=== PATIENT | male | born 1965 | race Caucasian/White ===

== ENCOUNTER 2020-03-20 11:06 | Outpatient (CLI) | payer OTHER ==
[2020-03-21 13:58] LABS: SARS-CoV-2 MS2 Positive; SARS-CoV-2 N Gene Negative; SARS-CoV-2 S Gene Negative; SARS-CoV-2 orf1ab Negative
== END 2020-03-20 11:07 | disposition home or self-care (01) ==
LOC: SCSLAB 11:06
PROVIDERS: ATTEND Orthopaedic Surgery
DX: Z01.812 Encounter for preprocedural laboratory examination (principal); Z11.59 Encounter for screening for other viral diseases; M71.121 Other infective bursitis, right elbow
CPT/HCPCS: 87635; U0003

== ENCOUNTER 2021-03-14 18:23 | Inpatient (IN) | payer OTHER ==
[~2021-03-14 18:23] MED LIST: Heparin 1,000 UNITS/ML VIAL ONE
[2021-03-14] MEDS ORDERED: Ondansetron PF 4 MG/2 ML Vial IVP PRN (21:26)
[2021-03-14] MEDS ORDERED: Acetaminophen 325 MG TAB PO PRN (21:26)
[2021-03-14] MEDS ORDERED: Dextrose 5% in Water 1,000 ML IV PRN (21:35)
[2021-03-14] MEDS ORDERED: Dextrose 50% Abboject 50 ML SYRINGE SLOW IVP PRN (21:35)
[2021-03-14] MEDS: HYDROcodone/Acetaminophen 5/325 mg Tablet PO PRN (22:18)
[2021-03-14] MEDS: CEFAZOLIN 2 GM in Premix Bag 1 BAG IVPB SCH (22:18)
[2021-03-14] MEDS: Senokot S 8.6-50 MG TAB PO SCH (22:19)
[2021-03-14] MEDS ORDERED: Lantus 1000 UNITS/10 ML VIAL SC SCH (22:30)
[2021-03-14] MEDS ORDERED: Temazepam 15 MG CAP PO PRN (22:50)
[2021-03-14] MEDS ORDERED: fentaNYL 50 mcg/hour Patch TD SCH (23:00)
[2021-03-14] MEDS: Sodium Chloride 0.9% 1,000 ML IV SCH (23:10)
[2021-03-14] MEDS ORDERED: MULTIVITAMINS IV SCH (23:30)
[2021-03-14] MEDS ORDERED: TRACE ELEMENT IV SCH (23:30)
[2021-03-14] MEDS ORDERED: FOLIC ACID IV SCH (23:30)
[2021-03-14] MEDS ORDERED: [UNRECOGNIZED DRUG - OTHER] IV SCH (23:30)
[2021-03-15] MEDS: Morphine 4 MG/ML VIAL SLOW IVP PRN ×2 (00:50→05:53)
[2021-03-15 01:36] VITALS: BMI 22.0
[2021-03-15] MEDS: HYDROcodone/Acetaminophen 5/325 mg Tablet PO PRN (02:17)
[2021-03-15] MEDS: CEFAZOLIN 2 GM in Premix Bag 1 BAG IVPB SCH ×3 (05:54→23:03)
[2021-03-15 06:38] LABS: #Eosinphils 0.1 thou/uL (0.0-0.7); #Lymphocytes 1.8 thou/uL (1.20-3.40); #Monocytes 0.8 thou/uL (0.11-0.59); #Neutrophils 5.4 thou/uL (1.40-6.50); %Basophils 0.1 % (0.0-1.0); %Eosinophils 1.7 % (0.0-10.0); %Lymphocytes 22.5 % (21.0-51.0); %Monocytes 10.3 % (0.0-10.0); %Neutrophils 65.4 % (42.0-75.0); Hemoglobin 7.3 g/dL (14.0-18.0); Mean Corpuscular HGB CONC 32.8 g/dL (32.0-36.0); Mean Corpuscular Hemoglobin 29.1 pg (27.0-31.0); Mean Corpuscular Volume 88.9 fL (78.0-98.0); Mean Platelet Volume 7.2 fL (7.4-10.4); Platelet Count 304 thou/uL (130-400); RBC Distribution Width 14.6 % (11.5-14.5); Red Blood Cell (RBC) Count 2.52 mill/uL (4.70-6.10); White Blood Cell (WBC) Count 8.2 thou/uL (4.8-10.8)
[2021-03-15 06:57] LABS: Anion Gap 11 mmol/L (10-20); BUN (Urea Nitrogen) 19 mg/dL (8.4-25.7); Calc. Creatinine Clearance 115 mL/min (70-130); Calcium 8.4 mg/dL (7.8-10.44); Carbon Dioxide 28 mmol/L (22-29); Chloride 99 mmol/L (98-107); Glucose 164 mg/dL (70-105); Potassium 3.8 mmol/L (3.5-5.1); Sodium 134 mmol/L (136-145)
[2021-03-15 08:38] LABS: PTT 59.6 sec (22.9-36.1); Prothrombin Time 13.5 sec (12.0-14.7)
[2021-03-15 08:45] LABS: ALT (SGPT) 8 U/L (8-55); AST (SGOT) 11 U/L (5-34); Albumin 2.5 g/dL (3.5-5.0); Alkaline Phosphatase 876 U/L (40-110); Anion Gap 13 mmol/L (10-20); BUN (Urea Nitrogen) 18 mg/dL (8.4-25.7); Bilirubin, Total 0.3 mg/dL (0.2-1.2); Calc. Creatinine Clearance 118 mL/min (70-130); Calcium 8.3 mg/dL (7.8-10.44); Carbon Dioxide 25 mmol/L (22-29); Chloride 100 mmol/L (98-107); Globulin 3.9 g/dL (2.4-3.5); Glucose 157 mg/dL (70-105); Potassium 3.9 mmol/L (3.5-5.1); Protein, Total 6.4 g/dL (6.0-8.3); Sodium 134 mmol/L (136-145)
[2021-03-15] MEDS ORDERED: AA 4.25 %/CALCIUM/LYTES/D5W 2,000 ML IV SCH (08:45)
[2021-03-15] MEDS: Furosemide 40 MG/4 ML VIAL SLOW IVP SCH (09:43)
[2021-03-15] MEDS: Senokot S 8.6-50 MG TAB PO SCH ×2 (09:43→20:39)
[2021-03-15] MEDS: Magnesium Oxide 400 MG TAB PO SCH (09:43)
[2021-03-15] MEDS ORDERED: Fentanyl 100 MCG/2 ML VIAL ONE ×4 (10:01→13:09)
[2021-03-15] MEDS ORDERED: Promethazine HCl 25 MG/ML VIAL SLOW IVP PRN ×2 (10:26→12:20)
[2021-03-15] MEDS ORDERED: Promethazine HCl 25 MG/ML VIAL IM PRN ×3 (10:26→12:56)
[2021-03-15] MEDS ORDERED: Ondansetron HCl/PF 4 MG/2 ML Vial IVP PRN ×2 (10:26→12:20)
[2021-03-15] MEDS ORDERED: Ondansetron PF 4 MG/2 ML Vial ONE (10:30)
[2021-03-15] MEDS ORDERED: ePHEDrine Sulfate 50 MG/10 ML VIAL ONE (10:30)
[2021-03-15] MEDS ORDERED: diphenhydrAMINE 50 MG/ML VIAL ONE (10:30)
[2021-03-15] MEDS ORDERED: PROPOFOL 200 MG/20 ML VIAL ONE (10:30)
[2021-03-15] MEDS ORDERED: PHENYLEPHRINE-NS 100 MCG/ML 10 ML SYRINGE ONE (10:30)
[2021-03-15] MEDS ORDERED: Lidocaine 1% PF 5 ML VIAL ONE (10:30)
[2021-03-15] MEDS ORDERED: Rocuronium Bromide 10 MG/ML (10ML VIAL) ONE (10:30)
[2021-03-15] MEDS ORDERED: SUGAMMADEX SODIUM 200 MG/2 ML VIAL ONE (11:17)
[2021-03-15] MEDS ORDERED: HYDROmorphone 0.5 MG/0.5 ML SYRINGE ONE ×3 (12:19→13:36)
[2021-03-15] MEDS ORDERED: HYDROmorphone 2 MG/ML VIAL SLOW IVP PRN (12:20)
[2021-03-15] MEDS ORDERED: Morphine Sulfate 2 MG/ML SYRINGE SLOW IVP PRN (12:20)
[2021-03-15] MEDS ORDERED: Meperidine HCl/PF 25 MG/ML VIAL SLOW IVP PRN ×2 (12:20)
[2021-03-15] MEDS ORDERED: PACU-Morphine 4MG/ML VIAL SLOW IVP PRN (12:20)
[2021-03-15] MEDS ORDERED: diphenhydrAMINE 50 MG/ML VIAL IM PRN (12:56)
[2021-03-15] MEDS ORDERED: Naloxone HCl 0.4 mg/ml Vial IV PRN (12:56)
[2021-03-15] MEDS ORDERED: Ondansetron PF 4 MG/2 ML Vial IVP PRN (12:56)
[2021-03-15] MEDS ORDERED: Communication Order-Pharmacy FS SCH (13:00)
[2021-03-15] MEDS ORDERED: Promethazine HCl 25 MG/ML VIAL ONE (13:36)
[2021-03-15] MEDS: Nicotine 14 MG PATCH TD SCH (15:16)
[2021-03-15] MEDS: D5W-AA 4.25% with LYTES 1,000 ML IV SCH (16:28)
[2021-03-15] MEDS: Mirtazapine 15 MG TAB PO SCH (20:38)
[2021-03-15] MEDS: HumaLOG 300 UNITS/3 ML VIAL SC PRN (20:38)
[2021-03-15] MEDS: Lantus 1000 UNITS/10 ML VIAL SC SCH (20:39)
[2021-03-15] MEDS ORDERED: Lantus 1000 UNITS/10 ML VIAL SC SCH (21:00)
[2021-03-15] MEDS: Zolpidem Tartrate 5 MG TAB PO PRN (23:03)
[2021-03-15] MEDS: diphenhydrAMINE 50 MG/ML VIAL IVP PRN (23:03)
[2021-03-15] MEDS: HYDROmorphone 10 mg/100 ml CADD IVPB PRN (23:37)
[2021-03-15] MEDS: Sodium Chloride 0.9% 1,000 ML IV SCH (23:40)
[2021-03-16] MEDS: diphenhydrAMINE 50 MG/ML VIAL IVP PRN ×6 (01:52→22:37)
[2021-03-16] MEDS ORDERED: Gabapentin 300 MG CAP PO SCH ×2 (02:00→09:00)
[2021-03-16] MEDS: HumaLOG 300 UNITS/3 ML VIAL SC PRN ×3 (05:12→17:52)
[2021-03-16] MEDS: CEFAZOLIN 2 GM in Premix Bag 1 BAG IVPB SCH ×3 (05:15→20:26)
[2021-03-16] MEDS: D5W-AA 4.25% with LYTES 1,000 ML IV SCH ×2 (05:20→20:45)
[2021-03-16 06:01] LABS: #Monocytes 1.3 thou/uL (0.11-0.59); #Neutrophils 9.4 thou/uL (1.40-6.50); %Basophils 0.2 % (0.0-1.0); %Eosinophils 0.3 % (0.0-10.0); %Lymphocytes 15.8 % (21.0-51.0); %Monocytes 10.4 % (0.0-10.0); %Neutrophils 73.4 % (42.0-75.0); Hemoglobin 6.8 g/dL (14.0-18.0); Mean Corpuscular HGB CONC 33.6 g/dL (32.0-36.0); Mean Corpuscular Hemoglobin 29.8 pg (27.0-31.0); Mean Corpuscular Volume 88.8 fL (78.0-98.0); Mean Platelet Volume 7.6 fL (7.4-10.4); Platelet Count 292 thou/uL (130-400); RBC Distribution Width 14.5 % (11.5-14.5); Red Blood Cell (RBC) Count 2.29 mill/uL (4.70-6.10); White Blood Cell (WBC) Count 12.8 thou/uL (4.8-10.8)
[2021-03-16 06:06] LABS: Anion Gap 11 mmol/L (10-20); BUN (Urea Nitrogen) 20 mg/dL (8.4-25.7); Calc. Creatinine Clearance 115 mL/min (70-130); Calcium 8.1 mg/dL (7.8-10.44); Carbon Dioxide 27 mmol/L (22-29); Chloride 99 mmol/L (98-107); Glucose 174 mg/dL (70-105); Potassium 3.9 mmol/L (3.5-5.1); Sodium 133 mmol/L (136-145)
[2021-03-16] MEDS: Magnesium Oxide 400 MG TAB PO SCH (10:16)
[2021-03-16] MEDS: Polyethylene Glycol 3350 17 GM Packet PO SCH (10:18)
[2021-03-16] MEDS: Senokot S 8.6-50 MG TAB PO SCH (10:25)
[2021-03-16] MEDS: Furosemide 40 MG/4 ML VIAL SLOW IVP SCH (10:25)
[2021-03-16] MEDS: Acetaminophen 500 MG TAB PO SCH ×2 (11:54→17:51)
[2021-03-16] MEDS: Nicotine 14 MG PATCH TD SCH (11:56)
[2021-03-16] MEDS: HYDROmorphone 10 mg/100 ml CADD IVPB PRN (12:25)
[2021-03-16] MEDS: Gabapentin 300 MG CAP PO SCH ×2 (15:30→20:24)
[2021-03-16] MEDS ORDERED: Phytonadione 5 MG TAB PO SCH (19:00)
[2021-03-16] MEDS: Lantus 1000 UNITS/10 ML VIAL SC SCH (20:25)
[2021-03-16] MEDS: Mirtazapine 15 MG TAB PO SCH (20:25)
[2021-03-16] MEDS: Zolpidem Tartrate 5 MG TAB PO PRN (22:59)
[2021-03-17] MEDS: Acetaminophen 500 MG TAB PO SCH ×5 (00:38→23:19)
[2021-03-17] MEDS: Senokot S 8.6-50 MG TAB PO SCH ×3 (00:39→21:22)
[2021-03-17] MEDS: HumaLOG 300 UNITS/3 ML VIAL SC PRN ×4 (00:44→21:34)
[2021-03-17] MEDS: diphenhydrAMINE 50 MG/ML VIAL IVP PRN ×4 (01:16→18:42)
[2021-03-17] MEDS: CEFAZOLIN 2 GM in Premix Bag 1 BAG IVPB SCH ×3 (05:10→23:19)
[2021-03-17 05:48] LABS: #Eosinphils 0.1 thou/uL (0.0-0.7); #Monocytes 1.2 thou/uL (0.11-0.59); #Neutrophils 8.5 thou/uL (1.40-6.50); %Lymphocytes 16.8 % (21.0-51.0); %Monocytes 9.8 % (0.0-10.0); %Neutrophils 72.5 % (42.0-75.0); Hemoglobin 7.1 g/dL (14.0-18.0); Mean Corpuscular HGB CONC 32.7 g/dL (32.0-36.0); Mean Corpuscular Hemoglobin 29.2 pg (27.0-31.0); Mean Corpuscular Volume 89.4 fL (78.0-98.0); Mean Platelet Volume 7.6 fL (7.4-10.4); Platelet Count 218 thou/uL (130-400); Red Blood Cell (RBC) Count 2.43 mill/uL (4.70-6.10); White Blood Cell (WBC) Count 11.8 thou/uL (4.8-10.8)
[2021-03-17 06:09] LABS: Anion Gap 10 mmol/L (10-20); BUN (Urea Nitrogen) 23 mg/dL (8.4-25.7); Calc. Creatinine Clearance 105 mL/min (70-130); Carbon Dioxide 26 mmol/L (22-29); Chloride 98 mmol/L (98-107); Glucose 243 mg/dL (70-105); Sodium 130 mmol/L (136-145)
[2021-03-17 06:40] LABS: INR-International Normal Ratio 1.2; Prothrombin Time 15.4 sec (12.0-14.7)
[2021-03-17] MEDS ORDERED: Fentanyl 100 MCG/2 ML VIAL ONE ×4 (09:27→12:26)
[2021-03-17] MEDS: Magnesium Oxide 400 MG TAB PO SCH (09:46)
[2021-03-17] MEDS: Gabapentin 300 MG CAP PO SCH ×3 (09:46→21:21)
[2021-03-17] MEDS: Furosemide 40 MG/4 ML VIAL SLOW IVP SCH (09:46)
[2021-03-17] MEDS: Polyethylene Glycol 3350 17 GM Packet PO SCH (09:46)
[2021-03-17] MEDS ORDERED: Glycopyrrolate 0.2 MG/ML 5 ML SYRINGE ONE (10:33)
[2021-03-17] MEDS ORDERED: Ondansetron PF 4 MG/2 ML Vial ONE (10:33)
[2021-03-17] MEDS ORDERED: Succinylcholine 200 MG/10 ml SYRINGE FS ONE (10:33)
[2021-03-17] MEDS ORDERED: Lidocaine 1% PF 5 ML VIAL ONE (10:33)
[2021-03-17] MEDS ORDERED: Dexamethasone 20 MG/5 ML VIAL ONE (10:33)
[2021-03-17] MEDS ORDERED: Rocuronium Bromide 10 MG/ML (10ML VIAL) ONE (10:33)
[2021-03-17] MEDS: Nicotine 14 MG PATCH TD SCH (14:02)
[2021-03-17] MEDS: D5W-AA 4.25% with LYTES 1,000 ML IV SCH (14:32)
[2021-03-17] MEDS: Lantus 1000 UNITS/10 ML VIAL SC SCH (21:21)
[2021-03-17] MEDS: Mirtazapine 15 MG TAB PO SCH (21:21)
[2021-03-17] MEDS: diphenhydrAMINE 25 MG CAP PO PRN ×2 (21:21→23:19)
[2021-03-17] MEDS: Zolpidem Tartrate 5 MG TAB PO PRN (23:19)
[2021-03-18] MEDS: diphenhydrAMINE 50 MG/ML VIAL IVP PRN ×4 (01:43→21:15)
[2021-03-18] MEDS: HYDROmorphone 10 mg/100 ml CADD IVPB PRN ×2 (02:51→15:56)
[2021-03-18] MEDS: Acetaminophen 500 MG TAB PO SCH ×4 (05:13→23:43)
[2021-03-18] MEDS: CEFAZOLIN 2 GM in Premix Bag 1 BAG IVPB SCH ×3 (05:14→21:15)
[2021-03-18] MEDS: HumaLOG 300 UNITS/3 ML VIAL SC PRN ×2 (05:14→11:42)
[2021-03-18 05:51] LABS: #Lymphocytes 2.2 thou/uL (1.20-3.40); #Monocytes 1.3 thou/uL (0.11-0.59); #Neutrophils 15.3 thou/uL (1.40-6.50); %Basophils 0.1 % (0.0-1.0); %Eosinophils 0.1 % (0.0-10.0); %Lymphocytes 11.5 % (21.0-51.0); %Monocytes 6.6 % (0.0-10.0); %Neutrophils 81.7 % (42.0-75.0); Hemoglobin 8.4 g/dL (14.0-18.0); Mean Corpuscular HGB CONC 32.3 g/dL (32.0-36.0); Mean Corpuscular Hemoglobin 29.2 pg (27.0-31.0); Mean Corpuscular Volume 90.5 fL (78.0-98.0); Mean Platelet Volume 7.6 fL (7.4-10.4); Platelet Count 272 thou/uL (130-400); RBC Distribution Width 13.9 % (11.5-14.5); Red Blood Cell (RBC) Count 2.88 mill/uL (4.70-6.10); White Blood Cell (WBC) Count 18.8 thou/uL (4.8-10.8)
[2021-03-18] MEDS: Polyethylene Glycol 3350 17 GM Packet PO SCH (09:07)
[2021-03-18] MEDS: Gabapentin 300 MG CAP PO SCH ×3 (09:07→21:09)
[2021-03-18] MEDS: Magnesium Oxide 400 MG TAB PO SCH (09:07)
[2021-03-18] MEDS: Furosemide 40 MG/4 ML VIAL SLOW IVP SCH (09:08)
[2021-03-18] MEDS: Senokot S 8.6-50 MG TAB PO SCH ×2 (09:19→21:09)
[2021-03-18] MEDS: Nicotine 14 MG PATCH TD SCH (11:42)
[2021-03-18] MEDS ORDERED: Dextrose 5% in Water 1,000 ML IV PRN (15:10)
[2021-03-18] MEDS ORDERED: Dextrose 50% Abboject 50 ML SYRINGE SLOW IVP PRN (15:10)
[2021-03-18] MEDS: Insulin Regular 300 UNITS/3 ML VIAL SC PRN ×2 (17:39→21:15)
[2021-03-18] MEDS: Mirtazapine 15 MG TAB PO SCH (21:08)
[2021-03-18] MEDS: Lantus 1000 UNITS/10 ML VIAL SC SCH (21:09)
[2021-03-18] MEDS: Temazepam 15 MG CAP PO PRN (23:43)
[2021-03-19] MEDS: diphenhydrAMINE 50 MG/ML VIAL IVP PRN ×6 (01:51→23:56)
[2021-03-19 05:11] LABS: #Basophils 0.1 thou/uL (0.0-0.2); #Eosinphils 0.3 thou/uL (0.0-0.7); #Lymphocytes 3.1 thou/uL (1.20-3.40); #Neutrophils 8.2 thou/uL (1.40-6.50); %Basophils 0.4 % (0.0-1.0); %Eosinophils 2.2 % (0.0-10.0); %Lymphocytes 24.7 % (21.0-51.0); %Monocytes 7.7 % (0.0-10.0); Hemoglobin 8.5 g/dL (14.0-18.0); Mean Corpuscular HGB CONC 32.4 g/dL (32.0-36.0); Mean Corpuscular Hemoglobin 29.6 pg (27.0-31.0); Mean Corpuscular Volume 91.3 fL (78.0-98.0); Mean Platelet Volume 7.4 fL (7.4-10.4); Platelet Count 261 thou/uL (130-400); Red Blood Cell (RBC) Count 2.87 mill/uL (4.70-6.10); White Blood Cell (WBC) Count 12.6 thou/uL (4.8-10.8)
[2021-03-19 05:31] LABS: Anion Gap 13 mmol/L (10-20); BUN (Urea Nitrogen) 20 mg/dL (8.4-25.7); Calc. Creatinine Clearance 111 mL/min (70-130); Calcium 8.7 mg/dL (7.8-10.44); Carbon Dioxide 26 mmol/L (22-29); Chloride 102 mmol/L (98-107); Glucose 111 mg/dL (70-105); Potassium 4.2 mmol/L (3.5-5.1); Sodium 137 mmol/L (136-145)
[2021-03-19] MEDS: CEFAZOLIN 2 GM in Premix Bag 1 BAG IVPB SCH ×3 (06:06→22:11)
[2021-03-19] MEDS: Acetaminophen 500 MG TAB PO SCH (06:06)
[2021-03-19] MEDS: Gabapentin 300 MG CAP PO SCH ×3 (08:12→20:43)
[2021-03-19] MEDS: Magnesium Oxide 400 MG TAB PO SCH (08:13)
[2021-03-19] MEDS: Polyethylene Glycol 3350 17 GM Packet PO SCH (08:13)
[2021-03-19] MEDS: Senokot S 8.6-50 MG TAB PO SCH ×2 (08:14→20:42)
[2021-03-19] MEDS: HYDROmorphone 10 mg/100 ml CADD IVPB PRN (09:07)
[2021-03-19] MEDS: Lantus 1000 UNITS/10 ML VIAL SC SCH ×2 (09:08→20:43)
[2021-03-19] MEDS ORDERED: traMADol HCl 50 MG TAB PO PRN (11:38)
[2021-03-19] MEDS: HYDROcodone/Acetaminophen 10/325 mg Tablet PO PRN ×3 (13:25→22:11)
[2021-03-19] MEDS: Nicotine 14 MG PATCH TD SCH (13:28)
[2021-03-19] MEDS: Morphine 4 MG/ML VIAL SLOW IVP PRN ×4 (14:40→23:54)
[2021-03-19] MEDS: Mirtazapine 15 MG TAB PO SCH (20:43)
[2021-03-19] MEDS: Temazepam 15 MG CAP PO PRN (22:11)
[2021-03-20] MEDS: HYDROcodone/Acetaminophen 10/325 mg Tablet PO PRN ×5 (02:14→22:31)
[2021-03-20] MEDS: Morphine 4 MG/ML VIAL SLOW IVP PRN ×9 (03:36→23:26)
[2021-03-20] MEDS: diphenhydrAMINE 50 MG/ML VIAL IVP PRN ×6 (03:37→22:32)
[2021-03-20] MEDS: CEFAZOLIN 2 GM in Premix Bag 1 BAG IVPB SCH ×3 (05:40→22:32)
[2021-03-20] MEDS: Gabapentin 300 MG CAP PO SCH ×3 (08:10→20:38)
[2021-03-20] MEDS: Senokot S 8.6-50 MG TAB PO SCH ×2 (08:10→21:43)
[2021-03-20] MEDS: Magnesium Oxide 400 MG TAB PO SCH (08:10)
[2021-03-20] MEDS: Polyethylene Glycol 3350 17 GM Packet PO SCH (08:10)
[2021-03-20] MEDS: Nicotine 14 MG PATCH TD SCH (08:12)
[2021-03-20] MEDS: Lantus 1000 UNITS/10 ML VIAL SC SCH ×2 (09:52→20:39)
[2021-03-20] MEDS ORDERED: Lantus 1000 UNITS/10 ML VIAL SC SCH (10:30)
[2021-03-20] MEDS: Insulin Regular 300 UNITS/3 ML VIAL SC PRN (18:17)
[2021-03-20] MEDS: Temazepam 15 MG CAP PO PRN (20:37)
[2021-03-20] MEDS: Mirtazapine 15 MG TAB PO SCH (20:38)
[2021-03-21] MEDS: Morphine 4 MG/ML VIAL SLOW IVP PRN ×9 (01:22→22:06)
[2021-03-21] MEDS: Temazepam 15 MG CAP PO PRN ×2 (01:44→21:17)
[2021-03-21] MEDS: diphenhydrAMINE 25 MG CAP PO PRN ×5 (02:33→17:13)
[2021-03-21] MEDS: HYDROcodone/Acetaminophen 10/325 mg Tablet PO PRN ×5 (02:33→21:17)
[2021-03-21] MEDS: CEFAZOLIN 2 GM in Premix Bag 1 BAG IVPB SCH ×3 (05:45→21:17)
[2021-03-21 06:02] LABS: #Basophils 0.1 thou/uL (0.0-0.2); #Eosinphils 0.3 thou/uL (0.0-0.7); #Lymphocytes 2.7 thou/uL (1.20-3.40); #Monocytes 0.8 thou/uL (0.11-0.59); #Neutrophils 6.7 thou/uL (1.40-6.50); %Basophils 0.5 % (0.0-1.0); %Eosinophils 3.1 % (0.0-10.0); %Lymphocytes 25.7 % (21.0-51.0); %Monocytes 7.3 % (0.0-10.0); %Neutrophils 63.4 % (42.0-75.0); Hemoglobin 8.9 g/dL (14.0-18.0); Mean Corpuscular Hemoglobin 29.3 pg (27.0-31.0); Mean Corpuscular Volume 91.5 fL (78.0-98.0); Mean Platelet Volume 6.9 fL (7.4-10.4); Platelet Count 345 thou/uL (130-400); RBC Distribution Width 14.1 % (11.5-14.5); Red Blood Cell (RBC) Count 3.05 mill/uL (4.70-6.10); White Blood Cell (WBC) Count 10.5 thou/uL (4.8-10.8)
[2021-03-21 06:26] LABS: Anion Gap 10 mmol/L (10-20); BUN (Urea Nitrogen) 20 mg/dL (8.4-25.7); Calc. Creatinine Clearance 113 mL/min (70-130); Calcium 8.8 mg/dL (7.8-10.44); Carbon Dioxide 32 mmol/L (22-29); Chloride 98 mmol/L (98-107); Glucose 79 mg/dL (70-105); Sodium 136 mmol/L (136-145)
[2021-03-21] MEDS: Gabapentin 300 MG CAP PO SCH ×3 (07:56→19:40)
[2021-03-21] MEDS: Magnesium Oxide 400 MG TAB PO SCH (07:56)
[2021-03-21] MEDS: Aspirin 81 mg Enteric Coated Tablet PO SCH (07:57)
[2021-03-21] MEDS: Lantus 1000 UNITS/10 ML VIAL SC SCH ×2 (08:04→19:41)
[2021-03-21] MEDS: Senokot S 8.6-50 MG TAB PO SCH ×2 (08:07→19:42)
[2021-03-21] MEDS: Polyethylene Glycol 3350 17 GM Packet PO SCH (08:07)
[2021-03-21] MEDS: Nicotine 14 MG PATCH TD SCH (08:58)
[2021-03-21] MEDS ORDERED: Clopidogrel Bisulfate 75 MG TAB PO SCH (09:00)
[2021-03-21] MEDS: Mirtazapine 15 MG TAB PO SCH (19:41)
[2021-03-21] MEDS: diphenhydrAMINE 50 MG/ML VIAL IVP PRN (21:23)
[2021-03-22] MEDS: Morphine 4 MG/ML VIAL SLOW IVP PRN ×4 (00:15→09:04)
[2021-03-22] MEDS: HYDROcodone/Acetaminophen 10/325 mg Tablet PO PRN ×5 (01:06→21:12)
[2021-03-22] MEDS: diphenhydrAMINE 50 MG/ML VIAL IVP PRN ×2 (01:06→06:31)
[2021-03-22] MEDS: CEFAZOLIN 2 GM in Premix Bag 1 BAG IVPB SCH ×3 (05:03→21:15)
[2021-03-22] MEDS: Gabapentin 300 MG CAP PO SCH ×3 (08:58→21:11)
[2021-03-22] MEDS: Magnesium Oxide 400 MG TAB PO SCH (08:59)
[2021-03-22] MEDS: Lantus 1000 UNITS/10 ML VIAL SC SCH ×2 (09:00→21:10)
[2021-03-22] MEDS: Aspirin 81 mg Enteric Coated Tablet PO SCH (09:00)
[2021-03-22] MEDS: Nicotine 14 MG PATCH TD SCH (09:00)
[2021-03-22] MEDS: Polyethylene Glycol 3350 17 GM Packet PO SCH (11:28)
[2021-03-22] MEDS: Senokot S 8.6-50 MG TAB PO SCH (11:29)
[2021-03-22] MEDS: diphenhydrAMINE 25 MG CAP PO PRN ×2 (12:13→21:13)
[2021-03-22] MEDS: Mirtazapine 15 MG TAB PO SCH (21:13)
[2021-03-22] MEDS: Temazepam 15 MG CAP PO PRN (21:29)
[2021-03-23] MEDS: HYDROcodone/Acetaminophen 10/325 mg Tablet PO PRN ×4 (00:16→13:02)
[2021-03-23] MEDS: diphenhydrAMINE 25 MG CAP PO PRN ×3 (00:17→08:43)
[2021-03-23] MEDS: Senokot S 8.6-50 MG TAB PO SCH ×2 (01:08→08:37)
[2021-03-23] MEDS: CEFAZOLIN 2 GM in Premix Bag 1 BAG IVPB SCH ×2 (05:11→13:05)
[2021-03-23] MEDS: Insulin Regular 300 UNITS/3 ML VIAL SC PRN (05:15)
[2021-03-23] MEDS: Magnesium Oxide 400 MG TAB PO SCH (08:36)
[2021-03-23] MEDS: Gabapentin 300 MG CAP PO SCH ×2 (08:36→14:38)
[2021-03-23] MEDS: Aspirin 81 mg Enteric Coated Tablet PO SCH (08:37)
[2021-03-23] MEDS: Polyethylene Glycol 3350 17 GM Packet PO SCH (08:37)
[2021-03-23] MEDS: Lantus 1000 UNITS/10 ML VIAL SC SCH (08:41)
[2021-03-23] MEDS ORDERED: Morphine 2 MG/ML VIAL SLOW IVP SCH (12:00)
[2021-03-23] MEDS: Nicotine 14 MG PATCH TD SCH (13:03)
[2021-03-23 17:12] VITALS: BP 137/75; TEMP 98.7
== END 2021-03-23 16:00 | DRG 854 ==
LOC: SJJU 18:23
PROVIDERS: ADMIT Internal Medicine; ATTEND Hospitalist
PROC: 0Y6D0Z1 Detachment at Left Upper Leg, High, Open Approach (ICD-10-PCS; principal; 2021-03-15)
PROC: 30233N1 Transfusion of Nonautologous Red Blood Cells into Peripheral Vein, Percutaneous Approach (ICD-10-PCS; 2021-03-15)
PROC: 0Y3J0ZZ Control Bleeding in Left Lower Leg, Open Approach (ICD-10-PCS; 2021-03-17)
PROC: 02HV33Z Insertion of Infusion Device into Superior Vena Cava, Percutaneous Approach (ICD-10-PCS; 2021-03-19)
PROC: B548ZZA Ultrasonography of Superior Vena Cava, Guidance (ICD-10-PCS; 2021-03-19)
DX: A41.01 Sepsis due to Methicillin susceptible Staphylococcus aureus (principal); M00.062 Staphylococcal arthritis, left knee; M00.011 Staphylococcal arthritis, right shoulder; D62 Acute posthemorrhagic anemia; E44.0 Moderate protein-calorie malnutrition; L76.22 Postprocedural hemorrhage of skin and subcutaneous tissue following other procedure; L03.116 Cellulitis of left lower limb; E87.1 Hypo-osmolality and hyponatremia; B95.61 Methicillin susceptible Staphylococcus aureus infection as the cause of diseases classified elsewhere; E11.51 Type 2 diabetes mellitus with diabetic peripheral angiopathy without gangrene; Y83.8 Other surgical procedures as the cause of abnormal reaction of the patient, or of later complication, without mention of misadventure at the time of the procedure; I10 Essential (primary) hypertension; E11.65 Type 2 diabetes mellitus with hyperglycemia; F17.210 Nicotine dependence, cigarettes, uncomplicated; E78.5 Hyperlipidemia, unspecified; F39 Unspecified mood [affective] disorder; Z88.0 Allergy status to penicillin; Z79.899 Other long term (current) drug therapy; Z79.02 Long term (current) use of antithrombotics/antiplatelets; Z79.82 Long term (current) use of aspirin; Z79.4 Long term (current) use of insulin
CPT/HCPCS: 36415; 36416; 36430; 36569; 80048; 83880; 85025; 85610; 85730; 86140; 86850; 86900; 86901; 87040; 87070; 87149; 87205; 88307; C1751; J0690; J1100; J1170; J1200; J1644; J1815; J1940; J2270; J2405; J2550; J2704; J3010; P9016; Q0163

== ENCOUNTER 2021-03-28 08:52 | Inpatient (IN) | payer OTHER ==
[2021-03-27 14:34] VITALS: BMI 22.7
[2021-03-28 10:23] LABS: Prothrombin Time 13.4 sec (12.0-14.7)
[2021-03-28] MEDS ORDERED: Fentanyl 100 MCG/2 ML VIAL ONE ×5 (10:41→14:16)
[2021-03-28] MEDS ORDERED: Clindamycin/D5W 600 mg/50 ml Premix Bag ONE (10:41)
[2021-03-28] MEDS ORDERED: Ondansetron PF 4 MG/2 ML Vial ONE (11:15)
[2021-03-28] MEDS ORDERED: PROPOFOL 200 MG/20 ML VIAL ONE (11:15)
[2021-03-28] MEDS ORDERED: PHENYLEPHRINE-NS 100 MCG/ML 10 ML SYRINGE ONE (11:15)
[2021-03-28] MEDS ORDERED: ePHEDrine Sulfate 50 MG/10 ML VIAL ONE (11:15)
[2021-03-28] MEDS ORDERED: Tranexamic Acid 1,000 MG/10 ML VIAL ONE ×2 (11:58→12:47)
[2021-03-28] MEDS ORDERED: Meperidine HCl/PF 25 MG/ML VIAL ONE (12:39)
[2021-03-28] MEDS ORDERED: Tranexamic Acid 1,000 MG in Sodium Chloride 0.9% 250 ML 250 ML IVPB SCH (12:45)
[2021-03-28] MEDS ORDERED: Insulin Regular 300 UNITS/3 ML VIAL ONE (12:48)
[2021-03-28] MEDS ORDERED: HYDROmorphone 2 MG/ML VIAL ONE (13:12)
[2021-03-28] MEDS ORDERED: HumaLOG 300 UNITS/3 ML VIAL SC PRN (14:57)
[2021-03-28] MEDS ORDERED: Dextrose 5% in Water 1,000 ML IV PRN (14:57)
[2021-03-28] MEDS ORDERED: Dextrose 50% Abboject 50 ML SYRINGE SLOW IVP PRN (14:57)
[2021-03-28] MEDS ORDERED: Acetaminophen 325 MG TAB PO PRN (14:58)
[2021-03-28] MEDS ORDERED: HYDROcodone/Acetaminophen 7.5/325 mg Tablet PO PRN (15:39)
[2021-03-28] MEDS: CEFAZOLIN 2 GM in Premix Bag 1 BAG IVPB SCH (15:55)
[2021-03-28 15:56] LABS: #Basophils 0.1 thou/uL (0.0-0.2); #Eosinphils 0.2 thou/uL (0.0-0.7); #Lymphocytes 2.7 thou/uL (1.20-3.40); #Monocytes 0.8 thou/uL (0.11-0.59); #Neutrophils 6.8 thou/uL (1.40-6.50); %Basophils 0.5 % (0.0-1.0); %Eosinophils 2.3 % (0.0-10.0); %Lymphocytes 25.4 % (21.0-51.0); %Monocytes 7.8 % (0.0-10.0); Hemoglobin 9.5 g/dL (14.0-18.0); Mean Corpuscular HGB CONC 33.7 g/dL (32.0-36.0); Mean Corpuscular Hemoglobin 30.3 pg (27.0-31.0); Mean Corpuscular Volume 89.8 fL (78.0-98.0); Mean Platelet Volume 6.4 fL (7.4-10.4); Platelet Count 436 thou/uL (130-400); RBC Distribution Width 14.1 % (11.5-14.5); Red Blood Cell (RBC) Count 3.13 mill/uL (4.70-6.10); White Blood Cell (WBC) Count 10.6 thou/uL (4.8-10.8)
[2021-03-28 16:24] LABS: Hemoglobin A1c 5.6 % (4.0-6.0)
[2021-03-28] MEDS ORDERED: Ketorolac Tromethamine 30 MG/ML VIAL IVP PRN (18:34)
[2021-03-28] MEDS: Mirtazapine 15 MG TAB PO SCH (20:03)
[2021-03-28] MEDS: Famotidine 20 MG TAB PO SCH (20:03)
[2021-03-28] MEDS: Morphine 2 MG/ML VIAL SLOW IVP PRN (20:04)
[2021-03-28] MEDS: Senokot S 8.6-50 MG TAB PO SCH (20:04)
[2021-03-28] MEDS: Lantus 1000 UNITS/10 ML VIAL SC SCH (21:31)
[2021-03-28] MEDS: HumaLOG 300 UNITS/3 ML VIAL SC PRN (21:32)
[2021-03-29] MEDS: CEFAZOLIN 2 GM in Premix Bag 1 BAG IVPB SCH (00:10)
[2021-03-29] MEDS: Morphine 2 MG/ML VIAL SLOW IVP PRN ×6 (00:10→20:26)
[2021-03-29] MEDS: Temazepam 15 MG CAP PO PRN ×2 (00:32→22:30)
[2021-03-29 04:51] LABS: #Eosinphils 0.2 thou/uL (0.0-0.7); #Lymphocytes 1.8 thou/uL (1.20-3.40); #Monocytes 0.6 thou/uL (0.11-0.59); #Neutrophils 4.8 thou/uL (1.40-6.50); %Basophils 0.6 % (0.0-1.0); %Eosinophils 3.1 % (0.0-10.0); %Lymphocytes 23.6 % (21.0-51.0); %Monocytes 8.4 % (0.0-10.0); %Neutrophils 64.3 % (42.0-75.0); Hemoglobin 7.9 g/dL (14.0-18.0); Mean Corpuscular HGB CONC 31.4 g/dL (32.0-36.0); Mean Corpuscular Hemoglobin 28.9 pg (27.0-31.0); Mean Platelet Volume 6.9 fL (7.4-10.4); Platelet Count 322 thou/uL (130-400); Red Blood Cell (RBC) Count 2.72 mill/uL (4.70-6.10); White Blood Cell (WBC) Count 7.5 thou/uL (4.8-10.8)
[2021-03-29] MEDS ORDERED: Lantus 1000 UNITS/10 ML VIAL SC SCH (09:00)
[2021-03-29] MEDS: Famotidine 20 MG TAB PO SCH ×2 (09:03→20:27)
[2021-03-29] MEDS: Nicotine 14 MG PATCH TD SCH (09:04)
[2021-03-29] MEDS: Senokot S 8.6-50 MG TAB PO SCH ×2 (09:16→20:29)
[2021-03-29] MEDS: HYDROcodone/Acetaminophen 10/325 mg Tablet PO PRN ×4 (10:52→22:30)
[2021-03-29] MEDS ORDERED: Gabapentin 300 MG CAP PO SCH (13:00)
[2021-03-29] MEDS: HumaLOG 300 UNITS/3 ML VIAL SC PRN (17:49)
[2021-03-29] MEDS: Mirtazapine 15 MG TAB PO SCH (20:27)
[2021-03-29] MEDS: Lantus 1000 UNITS/10 ML VIAL SC SCH (20:33)
[2021-03-30] MEDS: Morphine 2 MG/ML VIAL SLOW IVP PRN ×4 (00:17→20:23)
[2021-03-30] MEDS: HumaLOG 300 UNITS/3 ML VIAL SC PRN ×2 (06:20→20:29)
[2021-03-30] MEDS: Lantus 1000 UNITS/10 ML VIAL SC SCH ×2 (08:03→20:30)
[2021-03-30] MEDS: Famotidine 20 MG TAB PO SCH ×2 (08:05→20:24)
[2021-03-30 08:25] LABS: Hemoglobin 9.7 g/dL (14.0-18.0)
[2021-03-30] MEDS: Senokot S 8.6-50 MG TAB PO SCH ×2 (11:12→21:26)
[2021-03-30] MEDS: Nicotine 14 MG PATCH TD SCH (11:12)
[2021-03-30] MEDS: HYDROcodone/Acetaminophen 10/325 mg Tablet PO PRN ×3 (15:14→22:20)
[2021-03-30] MEDS: Mirtazapine 15 MG TAB PO SCH (20:24)
[2021-03-30] MEDS: Gabapentin 300 MG CAP PO SCH (20:24)
[2021-03-30] MEDS: Temazepam 15 MG CAP PO PRN (20:24)
[2021-03-31] MEDS: Morphine 4 MG/ML VIAL SLOW IVP PRN ×6 (00:33→19:56)
[2021-03-31] MEDS: HYDROcodone/Acetaminophen 10/325 mg Tablet PO PRN ×3 (07:47→18:51)
[2021-03-31] MEDS: Gabapentin 300 MG CAP PO SCH (07:48)
[2021-03-31] MEDS: Senokot S 8.6-50 MG TAB PO SCH ×2 (07:49→07:52)
[2021-03-31] MEDS: Famotidine 20 MG TAB PO SCH (07:49)
[2021-03-31] MEDS ORDERED: Enoxaparin Sodium 40 MG/0.4 ML SYRINGE SC SCH (09:00)
[2021-03-31] MEDS ORDERED: Senokot S 8.6-50 MG TAB PO PRN (09:11)
[2021-03-31] MEDS ORDERED: Polyethylene Glycol 3350 17 GM Packet PO PRN (09:11)
[2021-03-31] MEDS ORDERED: Gabapentin 300 MG CAP PO SCH ×2 (09:15→15:00)
[2021-03-31] MEDS: Lantus 1000 UNITS/10 ML VIAL SC SCH (10:31)
[2021-03-31] MEDS: Nicotine 14 MG PATCH TD SCH (11:42)
[2021-03-31] MEDS ORDERED: CEFAZOLIN 2 GM in Premix Bag 1 BAG IVPB SCH (16:00)
[2021-03-31 21:08] VITALS: BP 149/84; TEMP 99.3
[2021-03-31] MEDS ORDERED: ceFAZolin 1 GM/D5W 1 GM in Premix Bag 1 BAG IVPB SCH (23:59)
== END 2021-03-31 20:10 | DRG 507 ==
LOC: SDC 08:52 → SJJU 12:34 → OBSVTOIN 03-31 05:51
PROVIDERS: ADMIT Orthopaedic Surgery; ATTEND Orthopaedic Surgery
PROC: 0R9J0ZZ Drainage of Right Shoulder Joint, Open Approach (ICD-10-PCS; principal; 2021-03-28)
DX: M00.011 Staphylococcal arthritis, right shoulder (principal); I47.1 Supraventricular tachycardia; M60.011 Infective myositis, right shoulder; E44.0 Moderate protein-calorie malnutrition; Z20.822 Contact with and (suspected) exposure to COVID-19; F17.210 Nicotine dependence, cigarettes, uncomplicated; E78.5 Hyperlipidemia, unspecified; E11.65 Type 2 diabetes mellitus with hyperglycemia; G54.6 Phantom limb syndrome with pain; D50.9 Iron deficiency anemia, unspecified; B95.62 Methicillin resistant Staphylococcus aureus infection as the cause of diseases classified elsewhere; E11.51 Type 2 diabetes mellitus with diabetic peripheral angiopathy without gangrene; Z88.0 Allergy status to penicillin; Z68.22 Body mass index [BMI] 22.0-22.9, adult; Z79.899 Other long term (current) drug therapy; Z79.82 Long term (current) use of aspirin; Z79.4 Long term (current) use of insulin; Z89.612 Acquired absence of left leg above knee; Z95.828 Presence of other vascular implants and grafts
CPT/HCPCS: 36415; 36416; 83036; 85014; 85018; 85025; 85610; 96372; 96374; 96375; 96376; G0378; J0690; J1170; J1650; J1815; J1885; J2175; J2270; J2405; J2704; J3010; J3370; J3490

== ENCOUNTER 2021-04-05 10:22 | Day surgery (SDC) | payer OTHER ==
[2021-04-04 13:33] VITALS: BMI 22.0
[2021-04-05] MEDS ORDERED: Fentanyl 100 MCG/2 ML VIAL ONE ×6 (11:59→17:10)
[2021-04-05] MEDS ORDERED: Midazolam HCl 2 mg/2 ml Vial ONE (12:06)
[2021-04-05] MEDS ORDERED: Tobramycin Sulfate 1.2 GM VIAL ONE (12:44)
[2021-04-05] MEDS ORDERED: Tobramycin/Dexamethasone Ophth Oint 3.5 GM TUBE ONE (12:44)
[2021-04-05] MEDS ORDERED: Mineral Oil Sterile 10ML 10 ML UDCUP ONE (12:59)
[2021-04-05] MEDS ORDERED: Vancomycin 1 GM/200 ML BAG ONE (13:09)
[2021-04-05] MEDS ORDERED: Sodium Chloride 0.9% 100 ML ONE (13:09)
[2021-04-05] MEDS ORDERED: Clindamycin/D5W 600 mg/50 ml Premix Bag ONE (13:09)
[2021-04-05] MEDS ORDERED: Tranexamic Acid 1,000 MG/10 ML VIAL ONE (13:09)
[2021-04-05] MEDS ORDERED: PROPOFOL 200 MG/20 ML VIAL ONE (13:52)
[2021-04-05] MEDS ORDERED: Ondansetron PF 4 MG/2 ML Vial ONE (13:52)
[2021-04-05] MEDS ORDERED: Bupivacaine HCl 0.5%/Epinephrine 1:200,000/PF 30 ml Vial ONE (13:52)
[2021-04-05] MEDS ORDERED: PHENYLEPHRINE-NS 100 MCG/ML 10 ML SYRINGE ONE (13:52)
[2021-04-05] MEDS ORDERED: Rocuronium Bromide 10 MG/ML (10ML VIAL) ONE (13:52)
[2021-04-05] MEDS ORDERED: Sodium Chloride 0.9% 10 ML ONE (18:06)
[2021-04-05] MEDS ORDERED: Morphine 2 MG/ML VIAL ONE (18:11)
== END 2021-04-05 20:30 ==
LOC: SDC 10:22
PROVIDERS: ATTEND Orthopaedic Surgery
PROC: 0RRJ0J6 Replacement of Right Shoulder Joint with Synthetic Substitute, Humeral Surface, Open Approach (ICD-10-PCS; principal; 2021-04-05)
PROC: 0PT Upper Bones, Resection (ICD-10-PCS; principal; 2021-04-05)
DX: M86.8X1 Other osteomyelitis, shoulder (principal); Z88.0 Allergy status to penicillin
CPT/HCPCS: 36415; 36430; 86850; 86900; 86901; 87070; 87205; C1713; J2250; J2270; J2405; J2704; J3010; J3260; J3370; J3490; P9016

== ENCOUNTER 2021-06-26 09:49 | Day surgery (SDC) | payer OTHER ==
[2021-06-25 15:18] VITALS: BMI 20.5
[2021-06-26] MEDS ORDERED: Lidocaine 1% (PF) 30 ML VIAL ONE (11:08)
[2021-06-26] MEDS ORDERED: Heparin 10,000 UNITS/ 10 ML VIAL ONE (11:08)
[2021-06-26] MEDS ORDERED: Heparin 25,000 units/D5W 0 ML ONE (11:08)
[2021-06-26] MEDS ORDERED: Heparin 0 ML ONE (11:08)
[2021-06-26] MEDS ORDERED: Propofol 1,000 MG/100 ML VIAL IV ONE (11:30)
[2021-06-26] MEDS ORDERED: Meperidine HCl/PF 25 MG/ML VIAL ONE (12:00)
== END 2021-06-26 18:30 | disposition home or self-care (01) ==
LOC: CCL 09:49
PROVIDERS: ATTEND Internal Medicine Cardiovascular Disease
PROC: 02583ZZ Destruction of Conduction Mechanism, Percutaneous Approach (ICD-10-PCS; principal; 2021-06-26)
PROC: 02K83ZZ Map Conduction Mechanism, Percutaneous Approach (ICD-10-PCS; principal; 2021-06-26)
PROC: 4A023FZ Measurement of Cardiac Rhythm, Percutaneous Approach (ICD-10-PCS; principal; 2021-06-26)
DX: I47.1 Supraventricular tachycardia (principal); I25.10 Atherosclerotic heart disease of native coronary artery without angina pectoris; E11.51 Type 2 diabetes mellitus with diabetic peripheral angiopathy without gangrene; E11.622 Type 2 diabetes mellitus with other skin ulcer; L98.499 Non-pressure chronic ulcer of skin of other sites with unspecified severity; Z79.02 Long term (current) use of antithrombotics/antiplatelets; Z79.4 Long term (current) use of insulin; Z79.82 Long term (current) use of aspirin; Z79.899 Other long term (current) drug therapy; Z88.0 Allergy status to penicillin; Z89.612 Acquired absence of left leg above knee
CPT/HCPCS: 76942; 93005; 93010; 93613; 93621; 93653; C1730; C1894; C2630; J1644; J2001; J2175; J2704